=== PATIENT | female | born 1955 | race Caucasian/White ===

== ENCOUNTER → 2020-08-01 | Outpatient (CLI) | payer MEDICARE, OTHER ==
[~2020-08-01] MED LIST: CELEBREX100 MG PO; CIPROFLOXACIN250 MG PO; ELIQUIS 2.5 MG2.5 MG PO; FLOXIN 0.3% OTIC5 ML AS; HYDROCODON-ACE1 EAC2 PO; NEURONTIN600 MG PO; NEXIUM20 MG PO; PRAVACHOL20 MG PO; VITAMIN D21250 MCG PO; ZYRTEC10 M3 PO
[2020-08-01 13:17] LABS: HEMOGLOBIN 14.2 gm/dl (12.3-15.3); RED BLOOD COUNT 4.64 M/UL (4.00-5.10); WHITE BLOOD COUNT 4.8 K/UL (4.5-11.0)
[2020-08-01 13:32] LABS: BUN/CREATININE RATIO 24 (0-10)
== END ==
LOC: OPSV2 12:00 → EDSTATUS 12:00 → OPSV2 12:22
PROVIDERS: Orthopaedic Surgery
DX: Z01.818 Encounter for other preprocedural examination (principal); M16.11 Unilateral primary osteoarthritis, right hip; R91.8 Other nonspecific abnormal finding of lung field; R94.31 Abnormal electrocardiogram [ECG] [EKG]
CPT/HCPCS: 36415; 71046; 80048; 81001; 85025; 87081; 87086; 93005

== ENCOUNTER 2020-08-09 06:29 | Inpatient (IN) | payer MEDICARE, OTHER ==
[~2020-08-09] VITALS: Ht 157.5 cm; Wt 68.0 kg
[2020-08-09] MEDS ORDERED: NEURONTIN600 MG PO (07:21)
[2020-08-09] MEDS ORDERED: CIPROFLOXACIN250 MG PO (07:21)
[2020-08-09] MEDS ORDERED: PRAVACHOL20 MG PO (07:21)
[2020-08-09] MEDS ORDERED: NEXIUM20 MG PO (07:22)
[2020-08-09] MEDS ORDERED: ZYRTEC10 M3 PO (07:23)
[2020-08-09] MEDS ORDERED: VITAMIN D21250 MCG PO (07:23)
[2020-08-09] MEDS ORDERED: FLOXIN 0.3% OTIC5 ML AS (07:24)
[2020-08-09] MEDS ORDERED: CELEBREX100 MG PO ×2 (07:25→13:43)
[2020-08-09] MEDS ORDERED: HYDROCODON-ACE1 EAC2 PO (10:41)
[2020-08-10 03:25] LABS: HEMOGLOBIN 11.3 gm/dl (12.3-15.3); RED BLOOD COUNT 3.74 M/UL (4.00-5.10); WHITE BLOOD COUNT 10.9 K/UL (4.5-11.0)
[2020-08-10 03:48] LABS: BUN/CREATININE RATIO 14 (0-10)
[2020-08-11 06:13] LABS: HEMOGLOBIN 11.2 gm/dl (12.3-15.3); RED BLOOD COUNT 3.68 M/UL (4.00-5.10); WHITE BLOOD COUNT 10.1 K/UL (4.5-11.0)
[2020-08-11 06:41] LABS: BUN/CREATININE RATIO 13 (0-10)
[2020-08-12 06:07] LABS: HEMOGLOBIN 10.5 gm/dl (12.3-15.3); RED BLOOD COUNT 3.47 M/UL (4.00-5.10); WHITE BLOOD COUNT 7.7 K/UL (4.5-11.0)
[2020-08-12 06:26] LABS: BUN/CREATININE RATIO 16 (0-10)
--- NOTE | 2020-08-12 19:06 | NUR ---
NOTIFIED DR. GARCIA OF REDNESS AT THE INCISION SITE. HE TALKED TO [facility] AND THEY TOLD HIM THAT IT WAS NORMAL.
--- NOTE | 2020-08-13 10:53 | NUR ---
patient has been up in chair, up with assistance using walker. patient complaints of increase pain with activity. pain medication given
[2020-08-14] MEDS ORDERED: ELIQUIS 2.5 MG2.5 MG PO (10:14)
--- NOTE | 2020-08-14 13:27 | NUR ---
report given to latia Leahy
== END 2020-08-14 16:17 | disposition home or self-care (01) | DRG 470 ==
LOC: OR 06:29 → ZOBSOF 06:29 → M/S 06:29 → EDSTATUS 07:45 → M/S 11:10 → OR 11:10 → ZOBSOF 11:10 → M/S 11:10 → OR 08-11 06:29 → M/S 08-11 06:29 → OR 08-14 16:17
PROVIDERS: ADMIT Orthopaedic Surgery
PROC: 0SR904A Replacement of Right Hip Joint with Ceramic on Polyethylene Synthetic Substitute, Uncemented, Open Approach (ICD-10-PCS; principal; 2020-08-09 07:45)
DX: M16.0 Bilateral primary osteoarthritis of hip (principal); G89.29 Other chronic pain; K21.9 Gastro-esophageal reflux disease without esophagitis; E78.5 Hyperlipidemia, unspecified; Z79.899 Other long term (current) drug therapy; Z90.710 Acquired absence of both cervix and uterus; Z98.41 Cataract extraction status, right eye; Z96.1 Presence of intraocular lens
CPT/HCPCS: 36415; 72170; 76000; 80048; 81001; 85025; 86850; 86900; 86901; 97110; 97110-GP-CQ; 97116; 97116-GP-CQ; 97162; 97166; 97530-GP-CQ; 97535; C1776; J0592; J0690; J1100; J1170; J2001; J2250; J2270; J2405; J2704; J2710; J2795; J7050; J7120; U0003